=== PATIENT | male | born 1975 | race Caucasian/White ===

== ENCOUNTER 2020-03-20 23:12 | Emergency (ER) | payer OTHER ==
[2020-03-20 23:18] VITALS: PULSE 81; TEMP 97.9; BMI 26.4
[2020-03-20 23:35] VITALS: BP 134/64
[2020-03-20] MEDS ORDERED: IBUPROFEN 400 MG TABLET (FP) PO ONE ×2 (23:43→23:45)
== END 2020-03-20 23:50 | disposition home or self-care (01) ==
LOC: FER 23:12
DX: M25.512 Pain in left shoulder (principal)
CPT/HCPCS: 93005; 99284-25

== ENCOUNTER 2020-06-15 19:53 | Emergency (ER) | payer OTHER ==
[2020-06-15] MEDS ORDERED: LIDOCAINE HCL 2% (20ML MULTI-DOSE VIAL) ONE (19:58)
[2020-06-15] MEDS ORDERED: LIDOCAINE HCL 2% (50ML VIAL) INF ONE (19:58)
[2020-06-15] MEDS ORDERED: DIPHTH,PERTUSS(ACELL),TET 0.5 ML DISP.SYRIN IM ONE ×2 (19:59→20:08)
[2020-06-15 20:02] VITALS: BP 127/86; PULSE 85; TEMP 99; BMI 26.6
== END 2020-06-15 21:00 | disposition home or self-care (01) ==
LOC: FER 19:53
PROC: 3E0234Z Introduction of Serum, Toxoid and Vaccine into Muscle, Percutaneous Approach (ICD-10-PCS; principal; 2020-06-15)
DX: S61.412A Laceration without foreign body of left hand, initial encounter (principal)
CPT/HCPCS: 90715; 99284-25

== ENCOUNTER 2020-06-27 10:49 | Emergency (ER) | payer OTHER | END 2020-06-27 11:42 | disposition home or self-care (01) | LOC: FER 10:49 | CPT/HCPCS: 99281-25 ==

== ENCOUNTER 2021-04-01 20:00 | Emergency (ER) | payer BC, OTHER ==
[2021-04-01 20:21] VITALS: BP 123/88; PULSE 80; TEMP 98.5; BMI 27.1
[2021-04-01] MEDS ORDERED: ACETAMINOPHEN 500 MG TABLET (FP) PO ONE (20:31)
[2021-04-01] MEDS ORDERED: CEPHALEXIN MONOHYDRATE 500 MG CAPSULE (UD) PO ONE (20:55)
[2021-04-01] MEDS ORDERED: CEPHALEXIN MONOHYDRATE 500 MG CAPSULE (UD) ONE (20:57)
== END 2021-04-01 21:06 | disposition home or self-care (01) ==
LOC: FER 20:00
PROC: 0HQGXZZ Repair Left Hand Skin, External Approach (ICD-10-PCS; principal; 2021-04-01)
DX: S61.412A Laceration without foreign body of left hand, initial encounter (principal); W01.0XXA Fall on same level from slipping, tripping and stumbling without subsequent striking against object, initial encounter
CPT/HCPCS: 99283-25

== ENCOUNTER 2021-04-09 19:00 | Emergency (ER) | payer BC ==
[2021-04-09 19:06] VITALS: BP 132/92; PULSE 66; TEMP 98; BMI 23.5
== END 2021-04-09 19:47 | disposition home or self-care (01) ==
LOC: FER 19:00
DX: S61.412A Laceration without foreign body of left hand, initial encounter (principal); Y99.9 Unspecified external cause status; Z48.02 Encounter for removal of sutures
CPT/HCPCS: 99281-25